=== PATIENT | female | born 1970 | race African-American/Black ===

== ENCOUNTER 2020-07-22 16:58 | Emergency (ER) | payer OTHER ==
[~2020-07-22] VITALS: Ht 170.2 cm; Wt 99.8 kg
[2020-07-22 17:27] VITALS: Ht 170.2 cm; Wt 99.8 kg
[2020-07-22 19:08] VITALS: BP 161/77
== END 2020-07-22 19:08 | disposition home or self-care (01) ==
LOC: ED 16:58
DX: S80.01XA Contusion of right knee, initial encounter (principal); S40.012A Contusion of left shoulder, initial encounter; I10 Essential (primary) hypertension; E11.9 Type 2 diabetes mellitus without complications; W10.9XXA Fall (on) (from) unspecified stairs and steps, initial encounter; Y93.89 Activity, other specified; Y92.89 Other specified places as the place of occurrence of the external cause; Y99.8 Other external cause status